=== PATIENT | female | born 1990 | race Caucasian/White ===

== ENCOUNTER 2020-05-19 17:58 | Emergency (ER) | payer OTHER ==
[~2020-05-19] VITALS: Ht 154.9 cm; Wt 72.8 kg
[2020-05-19 18:01] VITALS: BP 121/75
[2020-05-19] MEDS ORDERED: IV NORMAL SALINE 1,000ML 1,000 ML IV ONE (18:30)
[2020-05-19] MEDS ORDERED: ONDANSETRON PF 4 MG/2 ML VIAL. IVP ONE (18:30)
--- NOTE | 2020-05-19 18:51 | PHYS DOC ---
Past History Past Medical History: Migraines Past Surgical History: No Surgical History Alcohol Use: None General Adult EDM: Chief Complaint: VOMITING IN HPI: HPI: 30-year-old female presents 8 weeks with vomiting and inability to eat. This is her first . Patient has not tried anything at home yet. She has been vomiting with both solids and fluids. She called the nurse helpline and they advised that she come here. She has not seen her OB yet. She has not had an ultrasound to confirm location. Patient denies vaginal bleeding or significant cramping. She does have some general abdominal pain that she thinks is from the vomiting. Denies fever or chills. Review of Systems: Review of Systems: Constitutional: Denies fever or chills Eyes: Denies change in visual acuity HENT: Denies nasal congestion or sore throat Respiratory: Denies cough or shortness of breath Cardiovascular: Denies chest pain or edema GI: Mild generalized abdominal pain, nausea, vomiting, diarrhea : Denies dysuria Musculoskeletal: Denies back pain or joint pain Integument: Denies rash Neurologic: Denies headache, focal weakness or sensory changes Endocrine: Denies polyuria or polydipsia Lymphatic: Denies swollen glands Psychiatric: Denies depression or anxiety Heart Score: Risk Factors: Risk Factors: DM, Current or recent (<one month) smoker, HTN, HLP, family history of CAD, obesity. Risk Scores: Score 0 - 3: 2.5% MACE over next 6 weeks - Discharge Home Score 4 - 6: 20.3% MACE over next 6 weeks - Admit for Clinical Observation Score 7 - 10: 72.7% MACE over next 6 weeks - Early Invasive Strategies Current Medications: Current Meds: Current Medications Medications (Trade) Dose Ordered Sig/Shine Start Time Stop Time Status Last Admin Dose Admin Ondansetron HCl (Zofran) 4 mg 1X ONCE 05/19/20 18:30 05/19/20 18:31 DC Sodium Chloride 1,000 ml @ 1,000 mls/hr 1X ONCE 05/19/20 18:30 05/19/20 19:29 Allergies: Allergies: Allergies Coded Allergies Type Severity Reaction Last Updated Verified gluten Allergy Unknown 05/19/20 Yes Physical Exam: PE: Constitutional: Well developed, well nourished, no acute distress, non-toxic appearance. [] HENT: Normocephalic, atraumatic, bilateral external ears normal, oropharynx moist, no oral exudates, nose normal. [] Eyes: PERRLA, EOMI, conjunctiva normal, no discharge. [] Neck: Normal range of motion, no tenderness, supple, no stridor. [] Cardiovascular:Heart rate regular rhythm, no murmur [] Lungs & Thorax: Bilateral breath sounds clear to auscultation [] Abdomen: Bowel sounds normal, soft, no tenderness, no masses, no pulsatile masses. [] Skin: Warm, dry, no erythema, no rash. [] Back: No tenderness, no CVA tenderness. [] Extremities: No tenderness, no cyanosis, no clubbing, ROM intact, no edema. [] Neurologic: Alert and oriented X 3, normal motor function, normal sensory function, no focal deficits noted. [] Psychologic: Affect normal, judgement normal, mood normal. [] Current Patient Data: Labs: Laboratory Tests Test 05/19/20 18:47 POC Urine HCG, Qualitative hcg positive (Negative) Vital Signs: Vital Signs Date Time Temp Pulse Resp B/P (MAP) Pulse Ox O2 Delivery O2 Flow Rate FiO2 05/19/20 18:01 98.2 76 16 121/75 (90) 100 Room Air EKG: EKG: [] Radiology/Procedures: Radiology/Procedures: [] Impressions: Exam: Ultrasound OB less than 14 weeks Indication: Vomiting, rule out ectopic Technique: Real-time grayscale and color Doppler images of the pelvis were obtained by the department database programmer analyst. Comparisons: None FINDINGS: Uterus measures 6.2 x 10.7 x 5.6 cm. Within the endometrium there is a gestational sac, yolk sac and pole which measures 1.8 cm corresponding to 8 weeks 2 days gestation. heart rate measured at 155 bpm. Left ovary measures 2.0 x 2.1 x 2.8 cm. Right ovary measures 1.6 x 3.0 x 2.3 cm. Within the right ovary there is a simple cyst measuring up to 2 cm. Vascular flow identified within the ovaries bilaterally. Trace free fluid. IMPRESSION: 1. Single live intrauterine gestation measuring 8 weeks 1 day gestation by LMP with concordant ultrasound. 2. Dedicated survey is recommended at 18-20 weeks gestation. 3. Right ovarian simple cyst measuring 2 cm. Electronically signed by: Es Sheets MD (05/19/2020 8:44 PM) [facility] DICTATED AND SIGNED BY: ES SHEETS MD DATE: 05/19/202043 CC: ALEX JIMENEZ DO; BETHANY KUNZ ~ Course & Med Decision Making: Course & Med Decision Making Pertinent Labs and Imaging studies reviewed. (See chart for details) The patient's labs are unremarkable. Her ultrasound does show an intrauterine . See official read for more details. Patient was given a liter normal saline and 4 mg of Zofran for her vomiting. She has had no further vomiting in the emergency room. I have discussed with her B6 supplementation, Unisom, and Benadryl. I will also discharge her with a prescription for Zofran. She will follow-up with her CHANNELER RUNNER for further guidance and management. She is stable for discharge at this time. [] Dragon Disclaimer: Dragon Disclaimer: This electronic medical record was generated, in whole or in part, using a voice recognition dictation system. Departure Departure: Impression: Primary Impression: Vomiting during Disposition: 01 HOME/RESIDENCE PRIOR TO ADM Condition: STABLE Referrals: BETHANY KUNZ (PCP) Patient Instructions: Nausea and Vomiting, [id number] Scripts Ondansetron (ONDANSETRON ODT) 4 Mg Tab.rapdis 1 TAB PO PRN Q6-8HRS PRN for VOMITING, #16 TAB Prov: ALEX JIMENEZ DO 05/19/20 ALEX JIMENEZ DO May 19, 2020 18:51
[2020-05-19 19:09] LABS: BILIRUBIN,URINE NEG (NEG); CLARITY,URINE HAZY; COLOR,URINE YELLOW; GLUCOSE,URINE 100 mg/dL (NEG)
[2020-05-19 19:10] LABS: BACTERIA,URINE FEW /HPF (0-FEW); NITRITE,URINE NEG (NEG); RBC,URINE 0 /HPF (0-2)
[2020-05-19 19:22] LABS: BASO % 0 % (0-3); EOS # 0.1 x10^3/uL (0.0-0.7); EOS % 1 % (0-3); HEMATOCRIT 41.4 % (36.0-47.0); HEMOGLOBIN 13.8 g/dL (12.0-15.5); LYMPH % 18 % (24-48); MEAN CORPUSCULAR HEMOGLOBIN 28 pg (25-35); MEAN CORPUSCULAR HGB CONC 33 g/dL (31-37); MEAN CORPUSCULAR VOLUME 85 fL (79-100); MONO # 0.9 x10^3/uL (0.0-1.1); MONO % 8 % (0-9); NEUT # 8.3 x10^3uL (1.8-7.7); NEUT % 74 % (31-73); PLATELET COUNT 244 x10^3/uL (140-400); RED BLOOD COUNT 4.86 x10^6/uL (3.50-5.40); RED CELL DISTRIBUTION WIDTH 12.9 % (11.5-14.5); WHITE BLOOD COUNT 11.3 x10^3/uL (4.0-11.0)
[2020-05-19 19:25] LABS: CALCIUM 9.2 mg/dL (8.5-10.1); CREATININE 0.9 mg/dL (0.6-1.0); GFR 73.5; POTASSIUM 3.4 mmol/L (3.5-5.1)
[2020-05-19 19:32] LABS: ALBUMIN 3.2 g/dL (3.4-5.0); ALBUMIN/GLOBULIN RATIO 0.8 (1.0-1.7); TOTAL BILIRUBIN 0.2 mg/dL (0.2-1.0); TOTAL PROTEIN 7.2 g/dL (6.4-8.2)
--- NOTE | 2020-05-19 20:47 | RAD ---
Exam: Ultrasound OB less than 14 weeks Indication: Vomiting, rule out ectopic Technique: Real-time grayscale and color Doppler images of the pelvis were obtained by the department prospecting driller. Comparisons: None FINDINGS: Uterus measures 6.2 x 10.7 x 5.6 cm. Within the endometrium there is a gestational sac, yolk sac and pole which measures 1.8 cm corresponding to 8 weeks 2 days gestation. heart rate measured at 155 bpm. Left ovary measures 2.0 x 2.1 x 2.8 cm. Right ovary measures 1.6 x 3.0 x 2.3 cm. Within the right ovary there is a simple cyst measuring up to 2 cm. Vascular flow identified within the ovaries bilaterally. Trace free fluid. IMPRESSION: 1. Single live intrauterine gestation measuring 8 weeks 1 day gestation by LMP with concordant ultrasound. 2. Dedicated survey is recommended at 18-20 weeks gestation. 3. Right ovarian simple cyst measuring 2 cm. Electronically signed by: Es Wisdom MD (05/19/2020 8:44 PM) MERI
[2020-05-19] MEDS ORDERED: ONDA4TAB12 PO (21:00)
== END 2020-05-19 21:10 | disposition home or self-care (01) ==
LOC: ER 17:58
DX: O21.9 Vomiting of pregnancy, unspecified (principal); R10.84 Generalized abdominal pain; R19.7 Diarrhea, unspecified; G43.909 Migraine, unspecified, not intractable, without status migrainosus; Z3A.08 8 weeks gestation of pregnancy; Z88.8 Allergy status to other drugs, medicaments and biological substances
CPT/HCPCS: 36415; 76801; 80053; 81001; 81025; 84702; 85025; 87086; 96361; 96374; 99284; J2405; J7030

== ENCOUNTER 2020-09-15 20:13 | Emergency (ER) | payer OTHER ==
[~2020-09-15] VITALS: Ht 154.9 cm; Wt 72.8 kg
[~2020-09-15 20:13] MED LIST: ONDA4TAB12 PO
--- NOTE | 2020-09-15 21:25 | PHYS DOC ---
Past History Past Medical History: No Pertinent History, Migraines (SKY SOLOMON APRN) Past Surgical History: No Surgical History (SKY SOLOMON APRN) Alcohol Use: None (SKY SOLOMON APRN) General Adult EDM: Chief Complaint: HEMORRHOIDS HPI: HPI: ]Patient is a 30-year-old female who presents with external hemorrhoids. P gregory is 25 week , primiparous. States, "I've had hemorrhoids since I was 12 but I never had them looked at because I was too embarrassed". "They have never been this bad or painful". Patient reports using Tucks, hot baths at home and cream to area with no relief. Patient reports some intermittent scant bleeding. Denies any health history. (SKY SOLOMON APRN) Review of Systems: Review of Systems: Constitutional: Denies fever or chills Eyes: Denies change in visual acuity HENT: Denies nasal congestion or sore throat Respiratory: Denies cough or shortness of breath Cardiovascular: Denies chest pain or edema GI: Denies abdominal pain, nausea, vomiting, bloody stools or diarrhea : Denies dysuria Musculoskeletal: Denies back pain or joint pain Integument: Multiple external hemorrhoids Neurologic: Denies headache, focal weakness or sensory changes Endocrine: Denies polyuria or polydipsia Lymphatic: Denies swollen glands Psychiatric: Denies depression or anxiety (SKY SOLOMON APRN) Allergies: Allergies: Allergies Coded Allergies Type Severity Reaction Last Updated Verified gluten Allergy Unknown 05/19/20 Yes (SKY SOLOMON APRN) Physical Exam: PE: Constitutional: Well developed, well nourished, no acute distress, non-toxic appearance. [] HENT: Normocephalic, atraumatic, bilateral external ears normal, oropharynx moist, no oral exudates, nose normal. [] Eyes: PERRLA, EOMI, conjunctiva normal, no discharge. [] Neck: Normal range of motion, no tenderness, supple, no stridor. [] Cardiovascular:Heart rate regular rhythm, no murmur [] Lungs & Thorax: Bilateral breath sounds clear to auscultation [] Abdomen: Bowel sounds normal, soft, no tenderness, no masses, no pulsatile masses. [] Skin: Warm, dry, no erythema, no rash. [] Back: No tenderness, no CVA tenderness. [] Extremities: No tenderness, no cyanosis, no clubbing, ROM intact, no edema. [] Neurologic: Alert and oriented X 3, normal motor function, normal sensory function, no focal deficits noted. [] Psychologic: Affect normal, judgement normal, mood normal. [] (SKY SOLOMON APRN) PE: Constitutional: Well developed, well nourished, no acute distress, non-toxic appearance HENT: Normocephalic, atraumatic Eyes: Conjunctiva normal, no discharge Neck: Normal range of motion, no tenderness, supple Lungs & Thorax: No respiratory distress, equal chest rise and fall Abdomen: Soft, no tenderness, gravid Rectal exam: Large soft external hemorrhoids with 4-5 area of thrombosed he morrhoids noted, no active bleeding noted Skin: Warm, dry, no erythema, no rash Extremities: No tenderness, ROM intact, no edema Neurologic: Alert and oriented X 3, no focal deficits noted Psychologic: Affect normal, judgment normal (YUE PLATT DO) Current Patient Data: Vital Signs: Vital Signs Date Time Temp Pulse Resp B/P (MAP) Pulse Ox O2 Delivery O2 Flow Rate FiO2 09/15/20 20:58 97.7 94 16 102/62 (75) 98 Room Air (SKY SOLOMON APRN) EKG: EKG: [] (SKY SOLOMON APRN) Radiology/Procedures: Radiology/Procedures: [] (SKY SOLOMON APRN) Heart Score: Risk Factors: Risk Factors: DM, Current or recent (<one month) smoker, HTN, HLP, family history of CAD, obesity. Risk Scores: Score 0 - 3: 2.5% MACE over next 6 weeks - Discharge Home Score 4 - 6: 20.3% MACE over next 6 weeks - Admit for Clinical Observation Score 7 - 10: 72.7% MACE over next 6 weeks - Early Invasive Strategies (SKY SOLOMON APRN) Course & Med Decision Making: Course & Med Decision Making Pertinent Labs and Imaging studies reviewed. (See chart for details) []Patient is a 30-year-old female who presents with external hemorrhoids. Patient is 25 week , primiparous. States, "I've had hemorrhoids since I was 12 but I never had them looked at because I was too embarrassed". "They have never been this bad or painful". Patient reports using Tucks, hot baths at home and cream to area with no relief. Patient reports some intermittent scant bleeding. Denies any health history. Heart Tones 136. Patient has 4-5, thrombosed external hemorrhoids. Contacted colorectal surgeon at [facility] for further treatment options and management. Patient's VEGETABLE HARVEST MACHINE OPERATOR is at [facility]. Spoke with colorectal surgeon, office who will call the patient in the morning for appointment. Instructed patient to use OTC hydrocortisone cream and miralax. Patient to sit in hot bath every hour for 20 minutes at a time. Patient to see staff at Dr. Christianson office in the am. Impression: 1.Hemorrhoids (SKY SOLOMON APRN) Dorina Disclaimer: Dorina Disclaimer: This electronic medical record was generated, in whole or in part, using a voice recognition dictation system. (SKY SOLOMON APRN) Departure Departure: Impression: Primary Impression: Hemorrhoids during Qualified Codes: O22.42 - Hemorrhoids in , second trimester Disposition: 01 DC HOME SELF CARE/HOMELESS Condition: STABLE Referrals: PCP,UNKNOWN (PCP) Patient Instructions: Hemorrhoids, [id number] Additional Instructions: He was in the emergency room today for external hemorrhoids. I spoke with Dr. Davies's office at [facility] who is a colorectal surgeon. His office staff will call you first thing in the morning to get an appointment for you to come in to be evaluated. I have provided a hydrocortisone cream for you to use for pain. Please take warm baths at home every hour, for 20 minutes at a time for pain relief. Please return to the emergency room with worsening symptoms or further concerns. EMERGENCY DEPARTMENT GENERAL DISCHARGE INSTRUCTIONS Thank you for coming to [facility] (ED) today and trusting us with you care. We trust that you had a positivie experience in our Emergency Department. If you wish to speak to the department management, you may call the director at [phone]. YOUR FOLLOW UP INSTRUCTIONS ARE FOLLOWS: 1. Do you have a private Doctor? If you do not have a private doctor, please ask for a resource list of physicians or clinics that may be able to assist you with follow up care. 2. The Emergency Physician has interpreted your x-rays. The X-Ray specialist will also review them. If there is a change in the findings, you will be notified in 48 hours when at all possible. 3. A lab test or culture has been done, your results will be reviewed and you will be notified if you need a change in treatment. ADDITIONAL INSTRUCTIONS AND INFORMATION: 1. Your care today has been supervised by a physician who is specially trained in emergency care. Many problems require more than one evaluation for a complete diagnosis and treatment. We recommend that you schedule your follow up appointment as recommended to ensure complete treatment of you illness or injury. If you are unable to obtain follow up care and continue to have a problem, or if your condition worsens, we recommend that you return to the ED. 2. We are not able to safely determine your condition over the phone nor are we able to give sound medical advice over the phone. For these safety reasons, if you call for medical advice we will ask you to come to the ED for further evaluation. 3. If you have any questions regarding these discharge instructions please call the ED at [phone]. SAFETY INFORMATION: In the interest of safety, wellness, and injury prevention; we encourage you to wear your sealbelt, if you smoke; quite smoking, and we encourage family to use a protective helmet for bicycling and other sporting events that present an increased risk for head injury. IF YOUR SYMPTOMS WORSEN OR NEW SYMPTOMS DEVELOP, OR YOU HAVE CONCERNS ABOUT YOUR CONDITION; OR IF YOUR CONDITION WORSENS WHILE YOU ARE WAITING FOR YOUR FOLLOW UP APPOINTMENT; EITHER CONTACT YOUR PRIMARY CARE DOCTOR, THE PHYSICIAN WHOSE NAME AND NUMBER YOU WERE GIVEN, OR RETURN TO THE ED IMMEDIATELY. Attending Signature Attending Signature I have personally interviewed and examined the patient. All charts, labs, and imaging studies were reviewed. I agree with the PA/HEALTH OCCUPATIONS TEACHER's findings, exam, and plan. (YUE PLATT DO) SKY SOLOMON APRN Sep 15, 2020 21:25 YUE PLATT DO Sep 16, 2020 00:39
[2020-09-15] MEDS ORDERED: LIDOCAINE 2% JELLY 10ML IN APPLICATOR. MM ONE (22:00)
[2020-09-15] MEDS ORDERED: HYDROCORTISONE 2.5% RECTAL CREAM 30GM TUBE. RC ONE (22:15)
[2020-09-15 22:30] VITALS: BP 102/55
== END 2020-09-15 22:48 | disposition home or self-care (01) ==
LOC: ER 20:13
DX: O22.42 Hemorrhoids in pregnancy, second trimester (principal); G43.909 Migraine, unspecified, not intractable, without status migrainosus; Z3A.25 25 weeks gestation of pregnancy; Z88.8 Allergy status to other drugs, medicaments and biological substances
CPT/HCPCS: 99284

== ENCOUNTER 2021-05-29 09:11 | Emergency (ER) | payer OTHER ==
[~2021-05-29] VITALS: Ht 180.3 cm; Wt 70.6 kg
--- NOTE | 2021-05-29 09:38 | PHYS DOC ---
Past History Past Medical History: Migraines Past Surgical History: No Surgical History Alcohol Use: None Adult General Chief Complaint Chief Complaint: GI PROBLEM HPI HPI Patient is a 31-year-old female presenting for right lower quadrant pain. Reports initial onset was 2 weeks ago without any known inciting event, trauma, ingestion, exposure or other known exposure. Nothing known makes better, certain positional movements and palpation makes worse. Pain is sharp and nonradiating in nature. Severity is 7/10. Timing of symptoms has been inconsistent and intermittent but is increased in frequency and duration. Today, patient states pain has been constant which worried her prompting her to come in for evaluation. She does admit she went to local urgent care 6 days prior given her symptoms and had an urinalysis that was concerning for UTI, she has been taking Keflex daily as scheduled. She reported back initially to urgent care this morning who immediately deferred patient to our ER for evaluation. Patient has history of migraines but has no other known diagnosable medical conditions, takes no concerning medications on a daily basis, has no history of any intra-abdominal abnormalities. She does have a known right ovarian cyst that was discovered incidentally on last . No fever or other concerning systemic symptoms reported Review of Systems Review of Systems Fourteen body systems of review of systems have been reviewed. See HPI for pertinent positives and negative responses, other brooke all other systems are negative, non-pertinent or non-contributory Allergies Allergies Allergies Coded Allergies Type Severity Reaction Last Updated Verified gluten Allergy Unknown 05/19/20 Yes Physical Exam Physical Exam Constitutional: Well developed, well nourished, no acute distress, non-toxic appearance. HENT: Normocephalic, atraumatic, bilateral external ears normal, oropharynx moist, no oral exudates, nose normal. Eyes: PERRLA, EOMI, conjunctiva normal, no discharge. Neck: Normal range of motion, no tenderness, supple, no stridor. Cardiovascular: Heart rate regular, sinus rhythm, no murmurs rubs or gallops Lungs & Thorax: Bilateral breath sounds clear to auscultation Abdomen: Bowel sounds normal, soft, right lower quadrant tenderness to palpation with positive McBurney point, guarding present, no rebound, no masses, no pulsatile masses. Nonsurgical abdomen, no peritoneal signs Skin: Warm, dry, no erythema, no rash. Back: No tenderness, no CVA tenderness. Extremities: No tenderness, no cyanosis, no clubbing, ROM intact, no edema. Neurologic: Alert and oriented X 3, grossly normal motor & sensory function, no focal deficits noted. Psychologic: Anxious affect and mood Current Patient Data Vital Signs Vital Signs Date Time Temp Pulse Resp B/P (MAP) Pulse Ox O2 Delivery O2 Flow Rate FiO2 05/29/21 09:15 97.7 81 18 136/88 (104) 100 Room Air Vital Signs Date Time Temp Pulse Resp B/P (MAP) Pulse Ox O2 Delivery O2 Flow Rate FiO2 05/29/21 09:47 Room Air 05/29/21 09:15 97.7 81 18 136/88 (104) 100 Lab Results Laboratory Tests Test 05/29/21 09:30 White Blood Count 9.5 x10^3/uL Red Blood Count 4.52 x10^6/uL Hemoglobin 12.0 g/dL Hematocrit 36.9 % Mean Corpuscular Volume 82 fL Mean Corpuscular Hemoglobin 27 pg Mean Corpuscular Hemoglobin Concent 33 g/dL Red Cell Distribution Width 15.7 % Platelet Count 272 x10^3/uL Neutrophils (%) (Auto) 71 % Lymphocytes (%) (Auto) 17 % Monocytes (%) (Auto) 10 % Eosinophils (%) (Auto) 1 % Basophils (%) (Auto) 0 % Neutrophils # (Auto) 6.8 x10^3uL Lymphocytes # (Auto) 1.6 x10^3/uL Monocytes # (Auto) 1.0 x10^3/uL Eosinophils # (Auto) 0.1 x10^3/uL Basophils # (Auto) 0.0 x10^3/uL Maternal Serum HCG Beta Subunit 1 mIU/mL Sodium Level 138 mmol/L Potassium Level 4.0 mmol/L Chloride Level 106 mmol/L Carbon Dioxide Level 27 mmol/L Anion Gap 5 Blood Urea Nitrogen 13 mg/dL Creatinine 1.5 mg/dL Estimated GFR (Cockcroft-Gault) 40.5 BUN/Creatinine Ratio 9 Glucose Level 89 mg/dL Calcium Level 8.8 mg/dL Total Bilirubin 0.4 mg/dL Aspartate Amino Transf (AST/SGOT) 15 U/L Alanine Aminotransferase (ALT/SGPT) 18 U/L Alkaline Phosphatase 84 U/L Total Protein 7.2 g/dL Albumin 3.5 g/dL Albumin/Globulin Ratio 0.9 Current Medications Medications (Trade) Dose Ordered Sig/Shine Route PRN Reason Start Time Stop Time Status Last Admin Dose Admin Fentanyl Citrate (Fentanyl 2ml Vial) 50 mcg 1X ONCE IVP 05/29/21 09:45 05/29/21 09:52 DC 05/29/21 09:47 Ondansetron HCl (Zofran) 4 mg 1X ONCE IVP 05/29/21 09:45 05/29/21 09:52 DC 05/29/21 09:46 Sodium Chloride 1,000 ml @ 1,000 mls/hr 1X ONCE IV 05/29/21 10:45 05/29/21 11:44 DC 05/29/21 10:45 Iohexol (Omnipaque 300 Mg/ml) 75 ml 1X ONCE IV 05/29/21 10:45 05/29/21 10:46 DC 05/29/21 10:46 Tamsulosin HCl (Flomax) 0.4 mg 1X ONCE PO 05/29/21 12:00 05/29/21 12:01 05/29/21 11:[address] STUDY OF THE ABDOMEN AND PELVIS WITH CONTRAST Clinical indications: Right lower quadrant abdominal pain. TECHNIQUE: After IV infusion of 60 cc of Omnipaque 300, helical CT scanning of the abdomen and pelvis was performed. GI contrast was not administered. This may decrease the sensitivity to detect GI tract pathology. PQRS COMPLIANCE STATEMENT One or more of the following individualized dose reduction techniques were utilized for this study: 1. Automated exposure control 2. Adjustment of the mA and/or kV according to patient size 3. Use of iterative reconstruction technique COMPARISON: None available. FINDINGS: The liver and spleen and pancreas and gallbladder are normal. No extra hepatic biliary ductal dilatation is seen. No adrenal mass is evident. There is moderate right-sided hydronephrosis and hydroureter down to the UVJ. At the UVJ, a 6 mm stone is apparent. Urinary bladder wall is smooth. No uterine mass is seen. There is a 2.2 cm left ovarian cyst. There is a small amount of ph ysiologic fluid within the cul-de-sac. No focal aneurysmal dilatation of the abdominal aorta is seen. No enlarged abdominal or pelvic lymphadenopathy is evident. No obstructive bowel pattern is evident. No free air or mesenteric edema is seen. The appendix is normal. No lung base consolidation is evident. No lytic process is seen. IMPRESSION: Moderate right-sided hydronephrosis and hydroureter due to a distal right ureteral stone measuring 6 mm in size. 2.2 cm left ovarian cyst. Electronically signed by: Ej Chacon MD (05/29/2021 11:41 AM) [id number] Radiology/Procedures Radiology/Procedures US PELVIS COMPLETE History: Right lower quadrant pain Comparison: None. Technique: Sonographic examination of the pelvis was performed with transabdominal technique. Findings: Uterus- Uterine parenchyma: Homogeneous without fibroids. Uterine measurements: 8.2 x 4.5 x 4.9 cm Cervix: Unremarkable. Endometrium- Endometrial Stripe: No abnormal fluid collections in the endometrial cavity, no obvious mass, and no abnormal blood flow within the endometrium by Doppler. Thickness: 2 mm. Adnexa- Right Ovary: Identified and appears normal. Size: 2.6 x 1.8 x 2.1 cm Doppler: Normal. Left Ovary: Contains a 2.0 cm dominant follicle. Size: 2.9 x 2.6 x 2.2 cm Doppler: Normal. Mass: No abnormal adnexal masses. Fluid: No abnormal free fluid in the pelvis. Additional findings: Evaluation of the right lower quadrant demonstrates normal appearance of bowel loops. No blind-ending tubular structure to correlate with the appendix is identified. Impression: 1. No acute pelvic findings. 2. Appendix nonvisualized. Electronically signed by: Shaan Moyer MD (05/29/2021 10:32 AM) [id number] //////////////////////////////////////////////// Heart Score C/O Chest Pain: No Risk Factors: Risk Factors: DM, Current or recent (<one month) smoker, HTN, HLP, family history of CAD, obesity. Risk Scores: Risk Factors: DM, Current or recent (<one month) smoker, HTN, HLP, family history of CAD, obesity. Course & Med Decision Making Course & Med Decision Making ABCs unremarkable. I disclosed entirety of ER findings and discussed most likely diagnosis of right-sided kidney stone with hydronephrosis at 6 mm. I disclosed entirety of ER visit such as elevated creatinine and potential worsening of stone. With that said patient stone is 6 mm and should pass without surgical intervention. Pain is well controlled after ER intervention. She has good access to care with primary care physician and understands need for close ou tpatient PCP and urologist follow-up. She is already on previously prescribed antibiotics which should cover any infection. Plan of care discussed at length with need for close outpatient follow-up to review today's ER visit stressed. Strict return precautions were also discussed at length with good understanding verbalized by patient. Patient voiced understanding and agreement with the plan. Patient knows to come back for repeat evaluation if concerning signs or symptoms present prior to outpatient follow-up. Hemodynamically stable, ambulatory and well-appearing at time of disposition. Dragon Disclaimer Dragon Disclaimer This electronic medical record was generated, in whole or in part, using a voice recognition dictation system. Departure Departure: Impression: Primary Impression: Right kidney stone Disposition: HOME / SELF CARE / HOMELESS Condition: STABLE Referrals: LAUREN LEE DO (PCP) Additional Instructions: You were seen for right flank and lower quadrant. You most likely have a kidney stone that will hopefully pass. We are writing you a prescription for pain medication. You should strain your urine to look for the stone. You will need to follow up with the urologists as soon as possible. Please contact your primary care physician for referral with them as discussed prior to ER departure. You should return to the ED if you develop worsening pain, fever, continued bloody urine, lightheadedness, shortness of breath, chest pain, or any other new or concerning symptoms. Scripts Tamsulosin Hcl (FLOMAX) 0.4 Mg Cap.er.24h 1 CAP PO DAILY for KIDNEY STONE, #30 CAP 0 Refills Prov: RENAY CURRAN DO 05/29/21 Hydrocodone Bit/Acetaminophen (HYDROCODONE-APAP 5-325 ) 1 Each Tablet 1 TAB PO PRN Q6HRS PRN for PAIN, #10 TAB 0 Refills Prov: RENAY CURRAN DO 05/29/21 Ondansetron (ONDANSETRON ODT) 4 Mg Tab.rapdis 1 TAB PO PRN Q6-8HRS for NAUSEA, #16 TAB Prov: RENAY CURRAN DO 05/29/21 RENAY CURRAN DO May 29, 2021 09:38
[2021-05-29] MEDS ORDERED: ONDANSETRON PF 4 MG/2 ML VIAL. IVP ONE (09:45)
[2021-05-29 09:46] LABS: BASO % 0 % (0-3); EOS # 0.1 x10^3/uL (0.0-0.7); EOS % 1 % (0-3); HEMATOCRIT 36.9 % (36.0-47.0); LYMPH # 1.6 x10^3/uL (1.0-4.8); LYMPH % 17 % (24-48); MEAN CORPUSCULAR HEMOGLOBIN 27 pg (25-35); MEAN CORPUSCULAR HGB CONC 33 g/dL (31-37); MEAN CORPUSCULAR VOLUME 82 fL (79-100); MONO % 10 % (0-9); NEUT # 6.8 x10^3uL (1.8-7.7); NEUT % 71 % (31-73); PLATELET COUNT 272 x10^3/uL (140-400); RED BLOOD COUNT 4.52 x10^6/uL (3.50-5.40); RED CELL DISTRIBUTION WIDTH 15.7 % (11.5-14.5); WHITE BLOOD COUNT 9.5 x10^3/uL (4.0-11.0)
[2021-05-29 09:55] LABS: CALCIUM 8.8 mg/dL (8.5-10.1); CREATININE 1.5 mg/dL (0.6-1.0); GFR 40.5
[2021-05-29 10:01] LABS: ALBUMIN 3.5 g/dL (3.4-5.0); ALBUMIN/GLOBULIN RATIO 0.9 (1.0-1.7); TOTAL BILIRUBIN 0.4 mg/dL (0.2-1.0); TOTAL PROTEIN 7.2 g/dL (6.4-8.2)
--- NOTE | 2021-05-29 10:34 | RAD ---
US PELVIS COMPLETE History: Right lower quadrant pain Comparison: None. Technique: Sonographic examination of the pelvis was performed with transabdominal technique. Findings: Uterus- Uterine parenchyma: Homogeneous without fibroids. Uterine measurements: 8.2 x 4.5 x 4.9 cm Cervix: Unremarkable. Endometrium- Endometrial Stripe: No abnormal fluid collections in the endometrial cavity, no obvious mass, and no abnormal blood flow within the endometrium by Doppler. Thickness: 2 mm. Adnexa- Right Ovary: Identified and appears normal. Size: 2.6 x 1.8 x 2.1 cm Doppler: Normal. Left Ovary: Contains a 2.0 cm dominant follicle. Size: 2.9 x 2.6 x 2.2 cm Doppler: Normal. Mass: No abnormal adnexal masses. Fluid: No abnormal free fluid in the pelvis. Additional findings: Evaluation of the right lower quadrant demonstrates normal appearance of bowel l oops. No blind-ending tubular structure to correlate with the appendix is identified. Impression: 1. No acute pelvic findings. 2. Appendix nonvisualized. Electronically signed by: Shaan Moyer MD (05/29/2021 10:32 AM) [id number]
[2021-05-29] MEDS ORDERED: IV NORMAL SALINE 1,000ML 1,000 ML IV ONE (10:45)
[2021-05-29] MEDS ORDERED: IOHEXOL 300 MG/ML 75 ML VIAL. IV ONE (10:45)
--- NOTE | 2021-05-29 11:43 | RAD ---
CT STUDY OF THE ABDOMEN AND PELVIS WITH CONTRAST Clinical indications: Right lower quadrant abdominal pain. TECHNIQUE: After IV infusion of 60 cc of Omnipaque 300, helical CT scanning of the abdomen and pelvis was performed. GI contrast was not administered. This may decrease the sensitivity to detect GI trac t pathology. PQRS COMPLIANCE STATEMENT One or more of the following individualized dose reduction techniques were utilized for this study: 1. Automated exposure control 2. Adjustment of the mA and/or kV according to patient size 3. Use of iterative reconstruction technique COMPARISON: None available. FINDINGS: The liver and spleen and pancreas and gallbladder are normal. No extra hepatic biliary duct al dilatation is seen. No adrenal mass is evident. There is moderate right-sided hydronephrosis and h ydroureter down to the UVJ. At the UVJ, a 6 mm stone is apparent. Urinary bladder wall is smooth. No uterine mass is seen. There is a 2.2 cm left ovarian cyst. There is a small amount of physiologic flu id within the cul-de-sac. No focal aneurysmal dilatation of the abdominal aorta is seen. No enlarged abdominal or pelvic lymphadenopathy is evident. No obstructive bowel pattern is evident. No free air or mesenteric edema is seen. The appendix is normal. No lung base consolidation is evident. No lytic process is seen. IMPRESSION: Moderate right-sided hydronephrosis and hydroureter due to a distal right ureteral stone measuring 6 mm in size. 2.2 cm left ovarian cyst. Electronically signed by: Ej Chacon MD (05/29/2021 11:41 AM) [id number]
[2021-05-29 11:55] VITALS: BP 106/54
[2021-05-29] MEDS ORDERED: TAMSULOSIN 0.4 MG CAP.ER.24H. PO ONE (12:00)
[2021-05-29] MEDS ORDERED: ONDA4TAB12 PO (12:04)
[2021-05-29] MEDS ORDERED: HYDR-2155 PO (12:04)
[2021-05-29] MEDS ORDERED: TAMS0.4C97 PO (12:04)
[2021-05-29] MEDS ORDERED: KETOROLAC 15 MG/ML VIAL. IVP ONE (12:15)
== END 2021-05-29 12:23 | disposition home or self-care (01) ==
LOC: ER 09:11
DX: N20.0 Calculus of kidney (principal)
CPT/HCPCS: 36415; 74177; 76856; 80053; 84702; 85025; 96361; 96374; 96375; 99285; J2405; J3010; J7030; Q9967